=== PATIENT | male | born 1990 | race African-American/Black ===

== ENCOUNTER → 2017-06-12 | Outpatient (CLI) | payer OTHER ==
--- NOTE | 2017-06-12 12:16 | RAD ---
Indication: Right knee pain. Technique: 2 views of the right knee are submitted for review. No comparison is available. Findings: There is no fracture or dislocation. There is no joint effusion or soft tissue swelling. Joint spaces are maintained. Impression: Negative for fracture
== END | disposition home or self-care (01) ==
LOC: RAD 10:06
PROVIDERS: ATTEND Family Medicine
DX: M25.561 Pain in right knee (principal)
CPT/HCPCS: 73560